=== PATIENT | female | born 1975 | race Two or more races ===

== ENCOUNTER 2016-12-14 07:26 | Emergency (ER) | payer BC, OTHER ==
[~2016-12-14] VITALS: Ht 160 cm; Wt 67.8 kg
[2016-12-14 07:28] VITALS: BP 141/81
== END 2016-12-14 12:12 | disposition home or self-care (01) ==
LOC: ED 08:09
DX: H92.02 Otalgia, left ear (principal); X58.XXXA Exposure to other specified factors, initial encounter; Y93.89 Activity, other specified; Y99.8 Other external cause status; Y92.89 Other specified places as the place of occurrence of the external cause
CPT/HCPCS: 99283